=== PATIENT | male | born 2000 | race American Indian/Alaskan Native ===

== ENCOUNTER 2022-04-25 19:15 | Emergency (ER) | payer OTHER ==
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
[2022-04-25 21:46] VITALS: BP 115/63
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
== END 2022-04-25 22:36 ==
LOC: ED 19:15
DX: S20.219A Contusion of unspecified front wall of thorax, initial encounter (principal); X58.XXXA Exposure to other specified factors, initial encounter; Y93.89 Activity, other specified; Y92.89 Other specified places as the place of occurrence of the external cause; Y99.8 Other external cause status
CPT/HCPCS: 71046; 99283